=== PATIENT | female | born 1955 | race African-American/Black ===

== ENCOUNTER → 2024-08-26 | Outpatient (CLI) | payer BC | END | disposition home or self-care (01) | LOC: RAD 14:09 | DX: M17.11 Unilateral primary osteoarthritis, right knee (principal); M76.891 Other specified enthesopathies of right lower limb, excluding foot; M23.41 Loose body in knee, right knee; M25.861 Other specified joint disorders, right knee; M25.562 Pain in left knee; M25.561 Pain in right knee | CPT/HCPCS: 73560 ==

== ENCOUNTER 2024-09-20 07:29 | Inpatient (IN) | payer BC ==
[~2024-09-20] VITALS: Ht 175.3 cm; Wt 99.3 kg
[~2024-09-20 07:29] MED LIST: ATOR10TA69 PO; BACITRACIN 14GM TUBE TOP ONE; CHLO25TA2 PO; LIDOCAINE HCL/EPINEPHRINE 1%-EPI 1:100,000 20ML VIAL ONE; POLYMYXIN B SULFATE 500000 UNITS/VIAL ONE; ROPIVACAINE HCL 1% 20 ML VIAL EPI ONE; SKIN ADHESIVE 0.7 GM EA TOP ONE; TRANEXAMIC ACID 1000MG PREMIX 200 ML IV ONE; VANCOMYCIN HCL 1GM VIAL ONE
[2024-09-20] MEDS ORDERED: LACTATED RINGERS 1,000 ML IV SCH (08:30)
[2024-09-20] MEDS ORDERED: SODIUM CHLORIDE 0.9% 10ML VIAL ONE (08:43)
[2024-09-20] MEDS ORDERED: EPHEDRINE SULFATE 50MG/ML VIAL ONE (08:43)
[2024-09-20] MEDS ORDERED: ONDANSETRON HCL 4MG/2ML INJ ONE (08:43)
[2024-09-20] MEDS ORDERED: FENTANYL CITRATE/PF 50MCG/ML 2ML VIAL ONE (08:44)
[2024-09-20] MEDS ORDERED: CEFAZOLIN SODIUM 1000MG/VIAL ONE (08:45)
[2024-09-20] MEDS ORDERED: MIDAZOLAM HCL 2 MG/2 ML VIAL ONE ×2 (08:45→09:50)
[2024-09-20] MEDS ORDERED: ONDANSETRON HCL 4MG/2ML INJ IV PRN ×2 (09:00→09:30)
[2024-09-20] MEDS ORDERED: HYDROMORPHONE HCL/PF 1MG/ML INJ IV PRN (09:00)
[2024-09-20] MEDS ORDERED: CEFAZOLIN 1000MG PREMIX 50 ML IV SCH (09:30)
[2024-09-20] MEDS ORDERED: ACETAMINOPHEN 325MG TABLET PO PRN (09:30)
[2024-09-20] MEDS ORDERED: NALOXONE HCL 0.4MG/ML VIAL IV PRN (10:15)
[2024-09-20 13:10] VITALS: BP 110/51; PULSE 51; RESP 19; TEMP 36.6
[2024-09-20] MEDS: KETOROLAC 30MG/ML VIAL IV PRN (13:51)
[2024-09-20] MEDS: CEFAZOLIN 1000MG PREMIX 50 ML IV SCH (17:00)
[2024-09-20] MEDS: METOCLOPRAMIDE HCL 10MG/2ML VIAL IV SCH (17:00)
[2024-09-20] MEDS: HYDROCODONE/ACETAMINOPHEN 5/325MG TABLET PO PRN (17:23)
[2024-09-20 20:00] VITALS: BP 128/55; PULSE 64; RESP 20; TEMP 37.4; O2SAT 100
[2024-09-20] MEDS: ASPIRIN 81MG TABLET PO SCH (21:03)
[2024-09-20] MEDS: SENNOSIDES/DOCUSATE SOD 8.6/50MG TABLET PO SCH (21:04)
[2024-09-21] VITALS: BP 122/58; PULSE 71; RESP 20; TEMP 36.5; O2SAT 99
[2024-09-21 07:50] LABS: BASOPHILS % 0.2 % (0.0-2.0); EOSINOPHILS % 0.8 % (0.0-5.0); HEMATOCRIT. 33.3 % (36.0-48.0); HEMOGLOBIN. 11.3 g/dL (12.0-16.0); LYMPHOCYTES % 22.4 % (20.0-50.0); MEAN CORPUSCULAR VOLUME 85.4 fL (81.0-99.0); MEAN PLATELET VOLUME 9.4 fl (7.4-10.4); MONOCYTES % 6.6 % (2.0-8.0); PLATELET 285 x1000/uL (130-400); RED CELL DISTRIBUTION WIDTH 15.4 % (11.6-14.6); WHITE BLOOD COUNT 9.5 x1000/uL (4.5-11.0)
[2024-09-21 08:00] VITALS: BP 124/55; PULSE 80; RESP 20; TEMP 36.6; O2SAT 98
[2024-09-21 08:14] LABS: POTASSIUM 3.3 mEq/L (3.5-5.1)
[2024-09-21 08:16] LABS: CALCIUM 9.6 mg/dL (8.7-10.4)
[2024-09-21 08:20] LABS: CREATININE 1.3 mg/dL (0.6-1.0)
[2024-09-21] MEDS: HYDROCODONE/ACETAMINOPHEN 5/325MG TABLET PO PRN (09:37)
[2024-09-21 12:00] VITALS: BP 140/59; PULSE 66; RESP 20; TEMP 36.7; O2SAT 98
[2024-09-21] MEDS: POLYETHYLENE GLYCOL 3350 (17GM) 1 DOSE PACK PO SCH (13:53)
[2024-09-21 16:00] VITALS: BP 143/57; PULSE 75; RESP 22; TEMP 36.5; O2SAT 99
[2024-09-21 22:21] VITALS: BP 133/56; PULSE 74; RESP 20; TEMP 37.4; O2SAT 97
[2024-09-22] VITALS: BP 149/68; PULSE 74; RESP 20; TEMP 38.5; O2SAT 95
[2024-09-22 04:00] VITALS: BP 147/68; PULSE 82; RESP 20; TEMP 38.3; O2SAT 95
[2024-09-22 08:00] VITALS: BP 147/62; PULSE 80; RESP 20; TEMP 36.6; O2SAT 96
[2024-09-22] MEDS ORDERED: BISACODYL 10MG SUPP PR PRN (09:30)
[2024-09-22] MEDS: LACTULOSE 20G/30ML UDC PO NR (10:00)
[2024-09-22 12:00] VITALS: BP 151/68; PULSE 84; RESP 20; TEMP 36.7; O2SAT 98
[2024-09-22] MEDS: POTASSIUM CHLORIDE 20MEQ TABLET SR PO NR (12:00)
[2024-09-22 16:00] VITALS: BP 150/69; PULSE 111; RESP 20; TEMP 37.2; O2SAT 96
[2024-09-22 20:00] VITALS: BP 134/65; PULSE 90; RESP 18; TEMP 38.6; O2SAT 97
[2024-09-23] VITALS (7 sets, daily range): BP systolic 129–141; BP diastolic 60–76; PULSE 77–102; RESP 17–20; TEMP 36.4–38; O2SAT 97–99
[2024-09-23 07:01] LABS: CHLORIDE 103 mEq/L (98-107); POTASSIUM 3.5 mEq/L (3.5-5.1); SODIUM 137 mEq/L (136-145)
[2024-09-23 07:02] LABS: CALCIUM 9.4 mg/dL (8.7-10.4); CARBON DIOXIDE 26 mEq/L (21-32)
[2024-09-23 07:05] LABS: BASOPHILS % 0.6 % (0.0-2.0); EOSINOPHILS % 0.8 % (0.0-5.0); HEMATOCRIT. 30.7 % (36.0-48.0); HEMOGLOBIN. 10.4 g/dL (12.0-16.0); LYMPHOCYTES % 20.2 % (20.0-50.0); MEAN CORPUSCULAR HEMOGLOBIN 28.7 pg (28.0-32.0); MEAN CORPUSCULAR HGB CONC 33.8 g/dL (31.0-37.0); MEAN CORPUSCULAR VOLUME 84.9 fL (81.0-99.0); MEAN PLATELET VOLUME 9.2 fl (7.4-10.4); MONOCYTES % 6.7 % (2.0-8.0); NEUTROPHILS % 71.7 % (40.0-76.0); PLATELET 280 x1000/uL (130-400); RED BLOOD CELL COUNT 3.62 mill/uL (4.2-5.4); RED CELL DISTRIBUTION WIDTH 15.1 % (11.6-14.6); WHITE BLOOD COUNT 10.6 x1000/uL (4.5-11.0)
[2024-09-23 07:07] LABS: CREATININE 1.1 mg/dL (0.6-1.0); GLUCOSE 151 mg/dL (70-105); UREA NITROGEN BLOOD 9 mg/dL (9-23)
[2024-09-23 07:08] LABS: ALANINE AMINOTRANSFERASE 13 IU/L (10-49); ALBUMIN 4.1 g/dL (3.2-4.8); ASPARTATE AMINOTRANSFERASE 18 IU/L (<34)
[2024-09-23 07:09] LABS: BILIRUBIN TOTAL 0.7 mg/dL (0.1-1.0); PROTEIN TOTAL 7.1 g/dL (6.0-8.3)
[2024-09-23] MEDS ORDERED: ASPI-1406 PO (13:23)
[2024-09-23] MEDS ORDERED: OXYC-100 MT (13:24)
== END 2024-09-23 18:54 | DRG 470 ==
LOC: OR 07:29 → 6EST 07:30
PROC: 0SRC0JA Replacement of Right Knee Joint with Synthetic Substitute, Uncemented, Open Approach (ICD-10-PCS; principal; 2024-09-20)
DX: M17.11 Unilateral primary osteoarthritis, right knee (principal); N17.9 Acute kidney failure, unspecified; M25.761 Osteophyte, right knee; I10 Essential (primary) hypertension; E66.811 Obesity, class 1; E87.6 Hypokalemia; D64.9 Anemia, unspecified; R73.9 Hyperglycemia, unspecified; R53.81 Other malaise; G89.29 Other chronic pain; Z82.49 Family history of ischemic heart disease and other diseases of the circulatory system; Z88.5 Allergy status to narcotic agent; Z96.651 Presence of right artificial knee joint; Z68.32 Body mass index [BMI] 32.0-32.9, adult
CPT/HCPCS: 36415; 73562; 80048; 80053; 83036; 85025; 86850; 86900; 88305; 88311; 93005; 93970; 97110; 97116; 97161; 97166; 97530; A6449; J0690; J1885; J2004; J2250; J2405; J2765; J2795; J3010; J3370; J3490; L1830; C1776

== ENCOUNTER → 2024-10-30 | Outpatient (CLI) | payer BC ==
[~2024-10-30] MED LIST changes: +ASPI-1406 PO; -BACITRACIN 14GM TUBE TOP ONE; -LIDOCAINE HCL/EPINEPHRINE 1%-EPI 1:100,000 20ML VIAL ONE; +OXYC-100 MT; -POLYMYXIN B SULFATE 500000 UNITS/VIAL ONE; -ROPIVACAINE HCL 1% 20 ML VIAL EPI ONE; -SKIN ADHESIVE 0.7 GM EA TOP ONE; -TRANEXAMIC ACID 1000MG PREMIX 200 ML IV ONE; -VANCOMYCIN HCL 1GM VIAL ONE
== END | disposition home or self-care (01) ==
LOC: RAD 13:05
DX: M25.461 Effusion, right knee (principal); Z96.651 Presence of right artificial knee joint
CPT/HCPCS: 73562